=== PATIENT | female | born 1980 | race Caucasian/White ===

== ENCOUNTER 2017-03-22 16:37 | Emergency (ER) | payer SELFPAY ==
[~2017-03-22] VITALS: Ht 154.9 cm; Wt 81.0 kg
[2017-03-22 17:26] LABS: HEMATOCRIT 39.3 % (36.0-46.0); MCH 31.4 PG (29.0-34.0); MCHC 33.8 G/DL (30.0-36.0); MCV 92.7 FL (83-99); MEAN PLAT.VOLUME 9.9 uM^3 (9.5-12.4); PLATELET COUNT 407 K/uL (156-360); RBC DIS.WIDTH-CV 12.3 % (11.8-14.6); RBC DIS.WIDTH-SD 42.1 % (39-53); RED BLOOD COUNT 4.24 M/uL (3.80-5.20)
[2017-03-22 17:38] LABS: CHLORIDE 104 mEq/L (99-109); POTASSIUM 4.4 mEq/L (3.7-5.4); SODIUM 138 mEq/L (136-147)
[2017-03-22 17:39] LABS: GLUCOSE 121 mg/dL (70-99)
[2017-03-22 17:41] LABS: ANION GAP 11 MEQ/L (2-14)
[2017-03-22 17:44] LABS: GFR ESTIMATE (CALCULATED) > 59 mL/min/; UREA NITROGEN (BUN) 13 mg/dL (9-23)
[2017-03-22 17:52] LABS: QUANTITATIVE HCG < 4.0 MIU/ML
[2017-03-22 19:04] LABS: CREATINE KINASE 129 IU/L (1-294)
[2017-03-22 20:51] VITALS: BP 160/85
== END 2017-03-22 20:54 | disposition home or self-care (01) ==
LOC: EME 16:37
DX: R55 Syncope and collapse (principal); S09.90XA Unspecified injury of head, initial encounter; W19.XXXA Unspecified fall, initial encounter; F17.200 Nicotine dependence, unspecified, uncomplicated
CPT/HCPCS: 70450; 71020; 80048; 82550; 84702; 85027; 93005; 99281; 99284

== ENCOUNTER 2017-03-23 09:09 | Emergency (ER) | payer SELFPAY ==
[~2017-03-23] VITALS: Ht 154.9 cm; Wt 79.0 kg
[2017-03-23 12:13] VITALS: BP 130/70
== END 2017-03-23 12:14 | disposition home or self-care (01) ==
LOC: EME 09:09
DX: R56.9 Unspecified convulsions (principal)
CPT/HCPCS: 99281; 99285; J1953; J7040; J7050